=== PATIENT | female | born 1990 | race American Indian/Alaskan Native ===

== ENCOUNTER 2021-01-23 09:05 | Outpatient (CLI) | payer BC ==
[2021-01-23 09:40] VITALS: BP 109/74
--- NOTE | 2021-01-23 14:47 | Ultrasound Report ---
ULTRASOUND OBSTETRIC COMPLETE INDICATION / CLINICAL INFORMATION: bpp stan. Clinical Gestational Age (GA) in weeks, days: 38 weeks 2 days TECHNIQUE: Transabdominal. COMPARISON: None available. FINDINGS: NUMBER: Single PRESENTATION: cephalic PLACENTA: anterior and free of the os. MATERNAL ADNEXA: No significant abnormality. AMNIOTIC FLUID VOLUME: normal AMNIOTIC FLUID INDEX (STAN) in cm (if measured): 8.4 ANATOMY: organs (including the bladder, stomach, kidneys, heart, umbilical cord, diaphragm, cord inserti on, spine and intracranial structures) are visualized and show no significant abnormality with the fo llowing exception(s): None. MEASUREMENTS: - Biparietal Diameter = 9.2 cm = 37 weeks 1 day - Head Circumference = 34.0 cm = 39 weeks 0 days - Abdominal Circumference = 31.3 cm = 35 weeks 1 day - Femur Length = 7.2 cm = 36 weeks 5 days - Estimated Weight (in grams, if calculated): 2879 - Heart Rate (beats per minute): 130 AVERAGE ULTRASOUND AGE (AUA) in weeks, days = 37 weeks 0 days BIOPHYSICAL PROFILE: BREATHING MOVEMENT = 2 GROSS BODY MOVEMENT = 2 TONE = 2 QUALITATIVE AMNIOTIC FLUID VOLUME = 2 TOTAL BIOPHYSICAL SCORE = 8/8 IMPRESSION: 1. Single intrauterine with AUA of 37 weeks 0 days. Total BPP of 8/8. 2. No significant sonographic abnormality. 3. STAN measures 8.4 cm, within normal limits. Signer Name: Amaury Agee MD Signed: 01/23/2021 2:42 PM Workstation Name: [id number]
== END 2021-01-23 12:34 | disposition home or self-care (01) ==
LOC: TRG 09:05 → APU 09:08 → TRG 12:34
PROVIDERS: ATTEND Obstetrics & Gynecology
DX: O47.1 False labor at or after 37 completed weeks of gestation (principal); Z3A.38 38 weeks gestation of pregnancy
CPT/HCPCS: 59025; 76816; 76819

== ENCOUNTER 2021-01-25 15:38 | Inpatient (IN) | payer BC ==
[2021-01-25] MEDS ORDERED: CARBOPROST TROMETHAMINE 250 MCG/1 ML INJ IM PRN (16:38)
[2021-01-25] MEDS ORDERED: miSOPROStol 200 MCG TAB PR PRN (16:38)
[2021-01-25] MEDS ORDERED: ONDANSETRON 4 MG/2 ML INJ IV PRN (16:38)
[2021-01-25] MEDS ORDERED: ePHEDrine SULFATE 50 MG/1 ML INJ IV PRN ×2 (16:38→18:38)
[2021-01-25] MEDS ORDERED: BUTORPHANOL 2 MG/1 ML INJ IV PRN ×2 (16:38)
[2021-01-25] MEDS ORDERED: LOPERAMIDE 2 MG CAP PO PRN (16:38)
[2021-01-25] MEDS ORDERED: METHYLERGONOVINE MALEATE 0.2 MG/ML VIAL IM PRN (16:38)
[2021-01-25] MEDS ORDERED: TERBUTALINE 1 MG/1 ML INJ SUB-Q PRN (16:38)
[2021-01-25] MEDS ORDERED: ACETAMINOPHEN 325 MG TAB PO PRN (16:38)
[2021-01-25] MEDS ORDERED: OXYTOCIN 10 UNIT/1 ML INJ IM PRN (16:38)
[2021-01-25] MEDS ORDERED: fentaNYL 100 MCG/2 ML INJ IV PRN (16:38)
[2021-01-25] MEDS ORDERED: MINERAL OIL 30 ML ORAL LIQD PO PRN (16:38)
[2021-01-25] MEDS ORDERED: OXYTOCIN DRIP 30 UNITS/500 ML BAG IV SCH ×2 (17:00)
[2021-01-25] MEDS ORDERED: AMPICILLIN/NS 2 GM/100 ML 2 GM/100 ML BAG IV ONE (17:00)
[2021-01-25] MEDS ORDERED: LIDOCAINE (2%) 20 MG/1 ML VIAL 20 ML MDV INFILTRATI ONE (17:00)
[2021-01-25] MEDS: LACTATED RINGERS 1,000 ML IV SCH ×2 (17:29→20:24)
[2021-01-25 17:38] LABS: Hematocrit 36.9 % (30.3-42.9); Hemoglobin 12.4 gm/dl (10.1-14.3); Mean Corpuscular HGB Conc 34 % (30-34); Mean Corpuscular Volume 81 fl (79-97); Platelet Count 200 K/mm3 (140-440); Red Blood Count 4.54 M/mm3 (3.65-5.03); Red Cell Distribution Width 15.6 % (13.2-15.2)
[2021-01-25] MEDS ORDERED: NALOXONE 2 MG/2 ML INJ IV PRN (18:38)
--- NOTE | 2021-01-25 18:39 | Anesthesia Consultation ---
Anesthesia Consult and Med Hx Date of service: 01/25/21 - Airway Anesthetic Teeth Evaluation: Good ROM Head & Neck: Adequate Mental/Hyoid Distance: Adequate Mallampati Class: Class II Intubation Access Assessment: Probably Good - Pulmonary Exam CTA: Yes - Cardiac Exam Cardiac Exam: RRR - Pre-Operative Health Status ASA Pre-Surgery Classification: ASA2 Proposed Anesthetic Plan: Epidural - Pulmonary Hx Asthma: Yes (LAST USE INHALER 3 DAYS AGO) COPD: No Hx Pneumonia: No - Cardiovascular System Hx Hypertension: No - Central Nervous System Hx Seizures: No Hx Psychiatric Problems: No - Endocrine Hx Renal Disease: No Hx End Stage Renal Disease: No Hx Hypothyroidism: No Hx Hyperthyroidism: No - Hematic Hx Anemia: No Hx Sickle Cell Disease: No - Other Systems Hx Alcohol Use: No
--- NOTE | 2021-01-25 18:41 | History and Physical Report ---
History of Present Illness Date of examination: 01/25/21 (pt admitted in labor) Chief complaint: worsening ctx all day History of present illness: EDC Confirmation: 02/04/2021 Gestational Age: 38 weeks Past History : 1 Term Births: 0 Premature Births: 0 Living Children: 0 Para: 0 Mult. Births: 0 Prev : 0 Aborta: 0 Elect. Ab: 0 Spont. Ab: 0 Ectopics: 0 Past Medical History: Reviewed history and no changes required: Allergies-seasonal Asthma: Inhaler daily ProAir, Wixela, No intubations Past Surgical History: Reviewed history and no changes required: negative Past Medical History Anesthesia Complications: negative Anemia: negative Autoimmune Disorder: negative Bleeding Disorder: negative Blood Transfusions: negative Breast Disease: negative Diabetes: negative Heart Disease: negative Hypertension: negative Hepatitis/Liver Disease: negative Kidney Disease/UTI: negative Neurologic/Epilepsy/Migraines: negative Phlebitis/Varicosities: negative Psychiatric: negative Pulmonary Disease/Asthma: negative Thyroid Disease: negative Hospitalizations: negative Surgery (Non-log cooker): negative Abnormal PAP: positive, F/u normal: 2018 TIFFANY Exposure: negative Infertility: negative Uterine Anomaly: negative Uterine Surgery (not C/S): negative Other Gynecologic Problems: negative Family Hx: CA: Mother, PGM HTN: Mother Infection History Hx of STD: none HIV Risk Eval: no Hepatitis B Risk Eval: low risk Personal hx. of genital herpes: no Partner hx. of genital herpes: no Rash, Viral, or Febrile illness since last LMP? no Varicella/Chicken Pox Status: Immunized TB Risk: no Genetic History Congenital Heart Defect: Mom: no Dad: no Latrice Disease: Mom: no Dad: no Thalassemia Mom: no Dad: no Neural Tube Defect Mom: no Dad: no Down's Syndrome Mom: no Dad: no Rich-Sachs Mom: no Dad: no Sickle Cell Disease/Trait Mom: no Dad: no Hemophilia Mom: no Dad: no Muscular Dystrophy Mom: no Dad: no Cystic Fibrosis Mom: no Dad: no Roz Chorea Mom: no Dad: no Mental Retardation Mom: no Dad: no Fragile X Mom: no Dad: no Other Genetic/Chromosomal Disorder Mom: no Dad: no Child w/other defect Mom: no Dad: no Enviromental Exposures Enviromental Exposures Reviewed Xray Exposure: no Medication, drug, or alcohol use since LMP: no Chemical/Other Exposure: no Exposure to Cat Liter: no Hx of Parvovirus (Fifth Disease): no Occupational Exposure to Children: none Current Allergies (reviewed today): * DUST (Critical) * POLLEN (Critical) Past History - Obstetrical History Expected Date of Delivery: 02/04/21 Actual Gestation: 38 Week(s) 4 Day(s) : 1 Para: 0 Hx # Term Pregnancies: 0 Number of Pregnancies: 0 Spontaneous Abortions: 0 Induced : 0 Number of Living Children: 0 Medications and Allergies Allergies Allergy/AdvReac Type Severity Reaction Status Date / Time No Known Allergies Allergy Unverified 01/23/21 10:09 Active Meds: Active Medications Acetaminophen (Acetaminophen 325 Mg Tab) 650 mg PO Q4H PRN PRN Reason: Pain, Mild (1-3) Butorphanol Tartrate (Butorphanol 2 Mg/1 Ml Inj) 1 mg IV Q2H PRN PRN Reason: Pain, Moderate(4-6) LABOR PAIN Butorphanol Tartrate (Butorphanol 2 Mg/1 Ml Inj) 2 mg IV Q2H PRN PRN Reason: Pain , Severe (7-10) Last Admin: 01/25/21 17:53 Dose: 2 mg Documented by: Carboprost Tromethamine (Carboprost Tromethamine 250 Mcg/1 Ml Inj) 250 mcg IM ONCE PRN PRN Reason: Uterine Bleeding Ephedrine Sulfate (Ephedrine Sulfate 50 Mg/1 Ml Inj) 10 mg IV Q2M PRN PRN Reason: Hypotension Ephedrine Sulfate (Ephedrine Sulfate 50 Mg/1 Ml Inj) 10 mg IV Q2M PRN PRN Reason: Hypotension Fentanyl (Fentanyl 100 Mcg/2 Ml Inj) 100 mcg IV Q2H PRN PRN Reason: Pain,Severe (7-10) LABOR PAIN Oxytocin/Sodium Chloride (Pitocin/Ns 30 Unit/500ml) 30 units in 500 mls @ 2 mls/hr IV TITR CAROLE; Protocol Lactated Ringer's (Lactated Ringers) 1,000 mls @ 125 mls/hr IV DIRECT CAROLE Last Admin: 01/25/21 17:29 Dose: 125 mls/hr Documented by: Oxytocin/Sodium Chloride (Pitocin/Ns 30 Unit/500ml) 30 units in 500 mls @ 40 ml s/hr IV TITR CAROLE; Protocol Fentanyl/Bupivacaine/Sodium Chlor (Fentanyl-Bupiv 2 Mcg/Ml-0.125%) 200 mcg in 100 mls @ 12 mls/hr EPIDURAL TITR CAROLE; Protocol Loperamide HCl (Loperamide 2 Mg Cap) 2 mg PO ONCE PRN PRN Reason: give with Hemabate Methylergonovine Maleate (Methylergonovine Maleate 0.2 Mg/Ml Vial) 0.2 mg IM ONCE PRN PRN Reason: Uterine Bleeding Mineral Oil (Mineral Oil 30 Ml Oral Liqd) 30 ml PO QHS PRN PRN Reason: Constipation Misoprostol (Misoprostol 200 Mcg Tab) 800 mcg MT ONCE PRN PRN Reason: Uterine Bleeding Naloxone HCl (Naloxone 2 Mg/2 Ml Inj) 0.2 mg IV Q5M PRN PRN Reason: Respiratory sedation Ondansetron HCl (Ondansetron 4 Mg/2 Ml Inj) 4 mg IV Q8H PRN PRN Reason: Nausea And Vomiting Last Admin: 01/25/21 17:53 Dose: 4 mg Documented by: Oxytocin (Oxytocin 10 Unit/1 Ml Inj) 10 unit IM ONCE PRN PRN Reason: Uterine Bleeding Terbutaline Sulfate (Terbutaline 1 Mg/1 Ml Inj) 0.25 mg SUB-Q ONCE PRN PRN Reason: Hyperstimulation/Hypertonicity Review of Systems All systems: negative - Vital Signs Vital signs: Vital Signs Pulse BP 76 129/69 01/25/21 15:58 01/25/21 15:58 Temp Pulse Resp BP Pulse Ox 98.4 F 73 18 119/71 98 01/25/21 16:07 01/25/21 18:36 01/25/21 16:07 01/25/21 17:58 01/25/21 18:36 - Physical Exam Breasts: Positive: deferred Cardiovascular: Regular rate, Normal S1, Normal S2 Abdomen: Positive: normal appearance, soft, normal bowel sounds. Negative: distention, tenderness Vulva: both: normal Vagina: Positive: normal moisture. Negative: discharge Cervix: Negative: lesion, discharge Uterus: Positive: normal size, normal contour Adnexa: both: normal Anus/Rectum: Positive: normal perianal skin, heme negative. Negative: rectal mass, hemorrhoids Extremities: Deep Tendon Reflex Grade: Normal +2 Results Result Diagrams: 01/25/21 17:05 Abnormal lab results 01/25/21 Range/Units 17:05 MCH 27 L (28-32) pg RDW 15.6 H (13.2-15.2) % All other labs normal. GBS Positive HBsAg Screen Negative Negative *1 RPR Non Reactive Non Reactive *2 Rubella Antibodies, IgG 3.18 index Immune >0.99 *3 Non-immune <0.90 Equivocal 0.90 - 0.99 Immune >0.99 ABO Grouping AB *4 Rh Factor Positive *5 Please note: Prior records for this patient's ABO / Rh type are not available for additional verification. Antibody Screen Negative Negative *6 WBC 4.9 x10E3/uL 3.4-10.8 *7 RBC 4.76 x10E6/uL 3.77-5.28 *8 Hemoglobin 12.3 g/dL 11.1-15.9 *9 Hematocrit 40.0 % 34.0-46.6 *10 MCV 84 fL 79-97 *11 MCH [L] 25.8 pg 26.6-33.0 *12 MCHC [L] 30.8 g/dL 31.5-35.7 *13 RDW 13.1 % 11.7-15.4 *14 Platelets 283 x10E3/uL 150-450 *15 Neutrophils 58 % Not Estab. *16 Lymphs 31 % Not Estab. *17 Monocytes 7 % Not Estab. *18 Eos 3 % Not Estab. *19 Basos 1 % Not Estab. *20 ! Immature Cells <No Reported Value> *21 Neutrophils (Absolute) 2.8 x10E3/uL 1.4-7.0 *22 Lymphs (Absolute) 1.5 x10E3/uL 0.7-3.1 *23 Monocytes(Absolute) 0.4 x10E3/uL 0.1-0.9 *24 Eos (Absolute) 0.1 x10E3/uL 0.0-0.4 *25 Baso (Absolute) 0.0 x10E3/uL 0.0-0.2 *26 ! Immature Granulocytes 0 % Not Estab. *27 ! Immature Grans (Abs) 0.0 x10E3/uL 0.0-0.1 *28 ! NRBC <No Reported Value> *29 Hematology Comments: <No Reported Value> *30 Tests: (2) HIV Ag/Ab with Reflex ([id number]) HIV Screen 4th Generation wRfx Non Reactive Non Reactive *31 Tests: (3) HCV Ab w/Rflx to Verification ([id number]) ! HCV Ab <0.1 s/co ratio 0.0-0.9 *32 Tests: (4) Comment: ([id number]) ! Comment: [facility] *33 Non reactive HCV antibody screen is consistent with no HCV infection, unless recent infection is suspected or other evidence exists to indicate HCV infection. Tests: (5) Urine Culture, Routine ([id number]) Urine Culture, Routine Final report *34 Tests: (6) Result ([id number]) ! Result 1 No growth *35 Assessment and Plan 30yo @ 38w in active labor GBS+ All orders in EMR Dr Garza aware - Patient Problems (1) Group B Streptococcus carrier state affecting Onset Date: ~01/25/21 Current Visit: Yes Status: Acute Plan to address problem: Ampicillin per protocol
[2021-01-25] MEDS ORDERED: LACTATED RINGERS 1,000 ML IV SCH (18:45)
[2021-01-25] MEDS ORDERED: fentaNYL-BUPIV 2 MCG/ML-0.125% 200 MCG/100 ML BAG EPIDURAL SCH (19:00)
--- NOTE | 2021-01-25 19:54 | Progress Note ---
Labor Epidural - Labor Epidural Start Time: 19:38 Stop Time: 19:43 Performed by:: SIMÓN GILLESPIE Procedure: Patient is requesting epidural for labor pain. H&P, and labs reviewed. Procedure explained, questions answered, consent obtained. Patient in sitting position with blood pressure cuff and pulse ox on and working. Timeout performed immediately before start of procedure. Sterile chlorahexadine 0.5% prep/drape. 3 mL 1% lidocaine skin wheal at L[3]-L[4]. 18-gauge Smartzertead epidural needle advanced to [id number] with saline at [7] cm. 27-gauge spinal needle advanced until clear, free-flowing CSF. Intrathecal dexmedetomidine [5] mcg administered and needle removed. Epidural catheter advanced to [12] cm, negative aspiration for blood and csf, negative test dose 3 ml 1.5% lidocaine with epinephrine. Sterile steri-strips and tegaderm applied, followed by tape reinforcement. Patient tolerated procedure well.
--- NOTE | 2021-01-25 20:43 | Progress Note ---
Assessment and Plan Mild hypotension after epidural Variable decels noted SROM clear fluid Internals placed. Ctx irregular pattern Will start pitocin Re-eval as needed - Patient Problems (1) Group B Streptococcus carrier state affecting Onset Date: ~01/25/21 Current Visit: Yes Status: Acute Subjective - Subjective Date of service: 01/25/21 (comfortable with epidural) Principal diagnosis: 38w labor GBS+ Interval history: EDC Confirmation: 02/04/2021 Gestational Age: 38 weeks Past History : 1 Term Births: 0 Premature Births: 0 Living Children: 0 Para: 0 Mult. Births: 0 Prev : 0 Aborta: 0 Elect. Ab: 0 Spont. Ab: 0 Ectopics: 0 Past Medical History: Reviewed history and no changes required: Allergies-seasonal Asthma: Inhaler daily ProAir, Wixela, No intubations Past Surgical History: Reviewed history and no changes required: negative Past Medical History Anesthesia Complications: negative Anemia: negative Autoimmune Disorder: negative Bleeding Disorder: negative Blood Transfusions: negative Breast Disease: negative Diabetes: negative Heart Disease: negative Hypertension: negative Hepatitis/Liver Disease: negative Kidney Disease/UTI: negative Neurologic/Epilepsy/Migraines: negative Phlebitis/Varicosities: negative Psychiatric: negative Pulmonary Disease/Asthma: negative Thyroid Disease: negative Hospitalizations: negative Surgery (Non-photographer scientific): negative Abnormal PAP: positive, F/u normal: 2018 TIFF[place] Exposure: negative Infertility: negative Uterine Anomaly: negative Uterine Surgery (not C/S): negative Other Gynecologic Problems: negative Family Hx: CA: Mother, PGM HTN: Mother Infection History Hx of STD: none HIV Risk Eval: no Hepatitis B Risk Eval: low risk Personal hx. of genital herpes: no Partner hx. of genital herpes: no Rash, Viral, or Febrile illness since last LMP? no Varicella/Chicken Pox Status: Immunized TB Risk: no Genetic History Congenital Heart Defect: Mom: no Dad: no Latrice Disease: Mom: no Dad: no Thalassemia Mom: no Dad: no Neural Tube Defect Mom: no Dad: no Down's Syndrome Mom: no Dad: no Rich-Sachs Mom: no Dad: no Sickle Cell Disease/Trait Mom: no Dad: no Hemophilia Mom: no Dad: no Muscular Dystrophy Mom: no Dad: no Cystic Fibrosis Mom: no Dad: no Meriwether Chorea Mom: no Dad: no Mental Retardation Mom: no Dad: no Fragile X Mom: no Dad: no Other Genetic/Chromosomal Disorder Mom: no Dad: no Child w/other defect Mom: no Dad: no Enviromental Exposures Enviromental Exposures Reviewed Xray Exposure: no Medication, drug, or alcohol use since LMP: no Chemical/Other Exposure: no Exposure to Cat Liter: no Hx of Parvovirus (Fifth Disease): no Occupational Exposure to Children: none Current Allergies (reviewed today): * DUST (Critical) * POLLEN (Critical) Patient reports: movement normal Objective - Vital Signs Vital Signs: Vital Signs - 12hr 01/25/21 01/25/21 01/25/21 15:58 15:59 16:04 Temperature Pulse Rate 76 71 77 Respiratory Rate Blood Pressure 129/69 Blood Pressure [Right] O2 Sat by Pulse 99 100 Oximetry 01/25/21 01/25/21 01/25/21 16:07 16:09 16:14 Temperature 98.4 F Pulse Rate 75 78 Respiratory 18 Rate Blood Pressure Blood Pressure [Right] O2 Sat by Pulse 99 99 Oximetry 01/25/21 01/25/21 01/25/21 16:19 16:24 16:29 Temperature Pulse Rate 79 72 68 Respiratory Rate Blood Pressure Blood Pressure [Right] O2 Sat by Pulse 100 99 99 Oximetry 01/25/21 01/25/21 01/25/21 16:34 16:39 16:44 Temperature Pulse Rate 74 77 76 Respiratory Rate Blood Pressure Blood Pressure [Right] O2 Sat by Pulse 100 100 100 Oximetry 01/25/21 01/25/21 01/25/21 16:49 16:54 16:56 Temperature Pulse Rate 70 70 63 Respiratory Rate Blood Pressure Blood Pressure [Right] O2 Sat by Pulse 100 99 90 Oximetry 01/25/21 01/25/21 01/25/21 16:59 17:04 17:09 Temperature Pulse Rate 77 71 74 Respiratory Rate Blood Pressure Blood Pressure [Right] O2 Sat by Pulse 99 100 100 Oximetry 01/25/21 01/25/21 01/25/21 17:14 17:35 17:36 Temperature Pulse Rate 66 63 72 Respiratory Rate Blood Pressure 125/74 Blood Pressure [Right] O2 Sat by Pulse 99 100 Oximetry 01/25/21 01/25/21 01/25/21 17:41 17:46 17:51 Temperature Pulse Rate 66 68 74 Respiratory Rate Blood Pressure Blood Pressure [Right] O2 Sat by Pulse 96 100 99 Oximetry 01/25/21 01/25/21 01/25/21 17:56 17:58 18:01 Temperature Pulse Rate 78 72 81 Respiratory Rate Blood Pressure 119/71 Blood Pressure [Right] O2 Sat by Pulse 99 99 Oximetry 01/25/21 01/25/21 01/25/21 18:06 18:11 18:16 Temperature Pulse Rate 69 71 65 Respiratory Rate Blood Pressure Blood Pressure [Right] O2 Sat by Pulse 99 98 98 Oximetry 01/25/21 01/25/21 01/25/21 18:21 18:26 18:31 Temperature Pulse Rate 65 66 68 Respiratory Rate Blood Pressure Blood Pressure [Right] O2 Sat by Pulse 98 98 97 Oximetry 01/25/21 01/25/21 01/25/21 18:36 18:41 18:42 Temperature Pulse Rate 73 65 59 L Respiratory Rate Blood Pressure Blood Pressure [Right] O2 Sat by Pulse 98 98 94 Oximetry 01/25/21 01/25/21 01/25/21 18:46 18:51 18:56 Temperature Pulse Rate 61 61 63 Respiratory Rate Blood Pressure Blood Pressure [Right] O2 Sat by Pulse 100 100 100 Oximetry 01/25/21 01/25/21 01/25/21 19:06 19:07 19:11 Temperature Pulse Rate 83 71 76 Respiratory Rate Blood Pressure 127/71 Blood Pressure [Right] O2 Sat by Pulse 95 98 Oximetry 01/25/21 01/25/21 01/25/21 19:16 19:19 19:21 Temperature 98.3 F Pulse Rate 69 71 73 Respiratory 16 Rate Blood Pressure Blood Pressure 127/71 [Right] O2 Sat by Pulse 100 98 99 Oximetry 01/25/21 01/25/21 01/25/21 19:29 19:34 19:39 Temperature Pulse Rate 85 78 69 Respiratory Rate Blood Pressure Blood Pressure [Right] O2 Sat by Pulse 100 99 99 Oximetry 01/25/21 01/25/21 01/25/21 19:44 19:45 19:47 Temperature Pulse Rate 76 71 76 Respiratory Rate Blood Pressure 122/73 135/78 144/72 Blood Pressure [Right] O2 Sat by Pulse 100 Oximetry 01/25/21 01/25/21 01/25/21 19:49 19:51 19:53 Temperature Pulse Rate 62 67 68 Respiratory Rate Blood Pressure 122/65 116/62 117/55 Blood Pressure [Right] O2 Sat by Pulse 99 Oximetry 01/25/21 01/25/21 01/25/21 19:54 19:55 19:57 Temperature Pulse Rate 72 62 76 Respiratory Rate Blood Pressure 112/55 113/54 Blood Pressure [Right] O2 Sat by Pulse 100 Oximetry 01/25/21 01/25/21 01/25/21 19:59 20:01 20:03 Temperature Pulse Rate 68 73 74 Respiratory Rate Blood Pressure 106/55 104/55 107/57 Blood Pressure [Right] O2 Sat by Pulse 100 Oximetry 01/25/21 01/25/21 01/25/21 20:04 20:05 20:07 Temperature Pulse Rate 73 80 78 Respiratory Rate Blood Pressure 123/59 118/57 Blood Pressure [Right] O2 Sat by Pulse 100 Oximetry 01/25/21 01/25/21 01/25/21 20:09 20:11 20:13 Temperature Pulse Rate 80 74 72 Respiratory Rate Blood Pressure 117/58 112/56 109/59 Blood Pressure [Right] O2 Sat by Pulse 98 Oximetry 01/25/21 01/25/21 01/25/21 20:14 20:15 20:17 Temperature Pulse Rate 77 76 75 Respiratory Rate Blood Pressure 104/57 101/56 Blood Pressure [Right] O2 Sat by Pulse 98 Oximetry 01/25/21 01/25/21 01/25/21 20:19 20:24 20:25 Temperature Pulse Rate 79 71 69 Respiratory Rate Blood Pressure 100/57 Blood Pressure [Right] O2 Sat by Pulse 99 100 Oximetry 01/25/21 01/25/21 01/25/21 20:29 20:32 20:34 Temperature Pulse Rate 73 70 74 Respiratory Rate Blood Pressure 103/59 Blood Pressure [Right] O2 Sat by Pulse 100 100 Oximetry 01/25/21 01/25/21 20:35 20:37 Temperature Pulse Rate 68 94 H Respiratory Rate Blood Pressure 108/68 Blood Pressure [Right] O2 Sat by Pulse 93 Oximetry - Exam Breasts: deferred Cardiovascular: Regular rate Lungs: Clear to auscultation Abdomen: Present: normal appearance, soft. Absent: distention, tenderness Uterus: Present: normal FHR: auscultation normal, category 1 (minimal variablity occ acceleration) Uterine Contraction Monitor Mode: Internal Cervical Dilatation: 6 (SROM clear) Cervical Effacement Percentage: 80 (Internals placed) Uterine Contraction Frequency (min): -2 Uterine Contraction Pattern: Regular Uterine Tone Measurement Phase: Resting Uterine Contraction Intensity: Moderate Extremities: normal Deep Tendon Reflex Grade: Normal +2 - Labs Labs: Abnormal Labs 01/25/21 17:05 MCH 27 L RDW 15.6 H Laboratory Results - last 24 hr 01/25/21 01/25/21 01/25/21 17:05 17:05 17:05 WBC 7.8 RBC 4.54 Hgb 12.4 Hct 36.9 MCV 81 MCH 27 L MCHC 34 RDW 15.6 H Plt Count 200 Syphilis IgG Antibody Nonreactive Blood Type AB POSITIVE Antibody Screen Negative
[2021-01-25] MEDS ORDERED: METOCLOPRAMIDE 10 MG/2 ML INJ IV ONE (22:27)
[2021-01-25] MEDS ORDERED: FAMOTIDINE 20 MG/2 ML INJ IV ONE (22:27)
[2021-01-25] MEDS ORDERED: BICITRA ORAL LIQD 30ML PO ONE (22:27)
--- NOTE | 2021-01-25 22:37 | Progress Note ---
Assessment and Plan Deep variable decel noted Mutiple position chges Pitocin off SVE 6.5,90,-2 OP Decel X 4 min then followed by [address] Garza called Enroute Pt advised need for operative delivery. Risks: bleeding, need for transfusion, damage to surrounding organs, need for c/s with future pregnancies. All questions addressed. Pt agrees to proceed. - Patient Problems (1) Group B Streptococcus carrier state affecting Onset Date: ~01/25/21 Current Visit: Yes Status: Acute Subjective - Subjective Date of service: 01/25/21 (prolong bradycardia) Principal diagnosis: 38w labor GBS+ Interval history: EDC Confirmation: 02/04/2021 Gestational Age: 38 weeks Past History : 1 Term Births: 0 Premature Births: 0 Living Children: 0 Para: 0 Mult. Births: 0 Prev : 0 Aborta: 0 Elect. Ab: 0 Spont. Ab: 0 Ectopics: 0 Past Medical History: Reviewed history and no changes required: Allergies-seasonal Asthma: Inhaler daily ProAir, Wixela, No intubations Past Surgical History: Reviewed history and no changes required: negative Past Medical History Anesthesia Complications: negative Anemia: negative Autoimmune Disorder: negative Bleeding Disorder: negative Blood Transfusions: negative Breast Disease: negative Diabetes: negative Heart Disease: negative Hypertension: negative Hepatitis/Liver Disease: negative Kidney Disease/UTI: negative Neurologic/Epilepsy/Migraines: negative Phlebitis/Varicosities: negative Psychiatric: negative Pulmonary Disease/Asthma: negative Thyroid Disease: negative Hospitalizations: negative 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 of genital herpes: no Partner hx. of genital herpes: no Rash, Viral, or Febrile illness since last LMP? no Varicella/Chicken Pox Status: Immunized TB Risk: no Genetic History Congenital Heart Defect: Mom: no Dad: no Latrice Disease: Mom: no Dad: no Thalassemia Mom: no Dad: no Neural Tube Defect Mom: no Dad: no Down's Syndrome Mom: no Dad: no Rich-Sachs Mom: no Dad: no Sickle Cell Disease/Trait Mom: no Dad: no Hemophilia Mom: no Dad: no Muscular Dystrophy Mom: no Dad: no Cystic Fibrosis Mom: no Dad: no [place] Chorea Mom: no Dad: no Mental Retardation Mom: no Dad: no Fragile X Mom: no Dad: no Other Genetic/Chromosomal Disorder Mom: no Dad: no Child w/other defect Mom: no Dad: no Enviromental Exposures Enviromental Exposures Reviewed Xray Exposure: no Medication, drug, or alcohol use since LMP: no Chemical/Other Exposure: no Exposure to Cat Liter: no Hx of Parvovirus (Fifth Disease): no Occupational Exposure to Children: none Current Allergies (reviewed today): * DUST (Critical) * POLLEN (Critical) Patient reports: movement normal Objective - Vital Signs Vital Signs: Vital Signs - 12hr 01/25/21 01/25/21 01/25/21 15:58 15:59 16:04 Temperature Pulse Rate 76 71 77 Respiratory Rate Blood Pressure 129/69 Blood Pressure [Right] O2 Sat by Pulse 99 100 Oximetry 01/25/21 01/25/21 01/25/21 16:07 16:09 16:14 Temperature 98.4 F Pulse Rate 75 78 Respiratory 18 Rate Blood Pressure Blood Pressure [Right] O2 Sat by Pulse 99 99 Oximetry 01/25/21 01/25/21 01/25/21 16:19 16:24 16:29 Temperature Pulse Rate 79 72 68 Respiratory Rate Blood Pressure Blood Pressure [Right] O2 Sat by Pulse 100 99 99 Oximetry 01/25/21 01/25/21 01/25/21 16:34 16:39 16:44 Temperature Pulse Rate 74 77 76 Respiratory Rate Blood Pressure Blood Pressure [Right] O2 Sat by Pulse 100 100 100 Oximetry 01/25/21 01/25/21 01/25/21 16:49 16:54 16:56 Temperature Pulse Rate 70 70 63 Respiratory Rate Blood Pressure Blood Pressure [Right] O2 Sat by Pulse 100 99 90 Oximetry 01/25/21 01/25/21 01/25/21 16:59 17:04 17:09 Temperature Pulse Rate 77 71 74 Respiratory Rate Blood Pressure Blood Pressure [Right] O2 Sat by Pulse 99 100 100 Oximetry 01/25/21 01/25/21 01/25/21 17:14 17:35 17:36 Temperature Pulse Rate 66 63 72 Respiratory Rate Blood Pressure 125/74 Blood Pressure [Right] O2 Sat by Pulse 99 100 Oximetry 01/25/21 01/25/21 01/25/21 17:41 17:46 17:51 Temperature Pulse Rate 66 68 74 Respiratory Rate Blood Pressure Blood Pressure [Right] O2 Sat by Pulse 96 100 99 Oximetry 01/25/21 01/25/21 01/25/21 17:56 17:58 18:01 Temperature Pulse Rate 78 72 81 Respiratory Rate Blood Pressure 119/71 Blood Pressure [Right] O2 Sat by Pulse 99 99 Oximetry 01/25/21 01/25/21 01/25/21 18:06 18:11 18:16 Temperature Pulse Rate 69 71 65 Respiratory Rate Blood Pressure Blood Pressure [Right] O2 Sat by Pulse 99 98 98 Oximetry 01/25/21 01/25/21 01/25/21 18:21 18:26 18:31 Temperature Pulse Rate 65 66 68 Respiratory Rate Blood Pressure Blood Pressure [Right] O2 Sat by Pulse 98 98 97 Oximetry 01/25/21 01/25/21 01/25/21 18:36 18:41 18:42 Temperature Pulse Rate 73 65 59 L Respiratory Rate Blood Pressure Blood Pressure [Right] O2 Sat by Pulse 98 98 94 Oximetry 01/25/21 01/25/21 01/25/21 18:46 18:51 18:56 Temperature Pulse Rate 61 61 63 Respiratory Rate Blood Pressure Blood Pressure [Right] O2 Sat by Pulse 100 100 100 Oximetry 01/25/21 01/25/21 01/25/21 19:06 19:07 19:11 Temperature Pulse Rate 83 71 76 Respiratory Rate Blood Pressure 127/71 Blood Pressure [Right] O2 Sat by Pulse 95 98 Oximetry 01/25/21 01/25/21 01/25/21 19:16 19:19 19:21 Temperature 98.3 F Pulse Rate 69 71 73 Respiratory 16 Rate Blood Pressure Blood Pressure 127/71 [Right] O2 Sat by Pulse 100 98 99 Oximetry 01/25/21 01/25/21 01/25/21 19:29 19:34 19:39 Temperature Pulse Rate 85 78 69 Respiratory Rate Blood Pressure Blood Pressure [Right] O2 Sat by Pulse 100 99 99 Oximetry 01/25/21 01/25/21 01/25/21 19:44 19:45 19:47 Temperature Pulse Rate 76 71 76 Respiratory Rate Blood Pressure 122/73 135/78 144/72 Blood Pressure [Right] O2 Sat by Pulse 100 Oximetry 01/25/21 01/25/21 01/25/21 19:49 19:51 19:53 Temperature Pulse Rate 62 67 68 Respiratory Rate Blood Pressure 122/65 116/62 117/55 Blood Pressure [Right] O2 Sat by Pulse 99 Oximetry 01/25/21 01/25/21 01/25/21 19:54 19:55 19:57 Temperature Pulse Rate 72 62 76 Respiratory Rate Blood Pressure 112/55 113/54 Blood Pressure [Right] O2 Sat by Pulse 100 Oximetry 01/25/21 01/25/21 01/25/21 19:59 20:01 20:03 Temperature Pulse Rate 68 73 74 Respiratory Rate Blood Pressure 106/55 104/55 107/57 Blood Pressure [Right] O2 Sat by Pulse 100 Oximetry 01/25/21 01/25/21 01/25/21 20:04 20:05 20:07 Temperature Pulse Rate 73 80 78 Respiratory Rate Blood Pressure 123/59 118/57 Blood Pressure [Right] O2 Sat by Pulse 100 Oximetry 01/25/21 01/25/21 01/25/21 20:09 20:11 20:13 Temperature Pulse Rate 80 74 72 Respiratory Rate Blood Pressure 117/58 112/56 109/59 Blood Pressure [Right] O2 Sat by Pulse 98 Oximetry 01/25/21 01/25/21 01/25/21 20:14 20:15 20:17 Temperature Pulse Rate 77 76 75 Respiratory Rate Blood Pressure 104/57 101/56 Blood Pressure [Right] O2 Sat by Pulse 98 Oximetry 01/25/21 01/25/21 01/25/21 20:19 20:24 20:25 Temperature Pulse Rate 79 71 69 Respiratory Rate Blood Pressure 100/57 Blood Pressure [Right] O2 Sat by Pulse 99 100 Oximetry 01/25/21 01/25/21 01/25/21 20:29 20:32 20:34 Temperature Pulse Rate 73 70 74 Respiratory Rate Blood Pressure 103/59 Blood Pressure [Right] O2 Sat by Pulse 100 100 Oximetry 01/25/21 01/25/21 01/25/21 20:35 20:37 20:39 Temperature Pulse Rate 68 94 H 73 Respiratory Rate Blood Pressure 108/68 Blood Pressure [Right] O2 Sat by Pulse 93 97 Oximetry 01/25/21 01/25/21 01/25/21 20:43 20:44 20:49 Temperature Pulse Rate 65 56 L 71 Respiratory Rate Blood Pressure 118/66 116/73 Blood Pressure [Right] O2 Sat by Pulse 94 96 100 Oximetry 01/25/21 01/25/21 01/25/21 20:54 20:59 21:04 Temperature Pulse Rate 67 61 61 Respiratory Rate Blood Pressure Blood Pressure [Right] O2 Sat by Pulse 100 100 99 Oximetry 01/25/21 01/25/21 01/25/21 21:07 21:09 21:14 Temperature Pulse Rate 78 70 61 Respiratory Rate Blood Pressure Blood Pressure [Right] O2 Sat by Pulse 90 100 100 Oximetry 01/25/21 01/25/21 01/25/21 21:16 21:19 21:21 Temperature Pulse Rate 65 67 74 Respiratory Rate Blood Pressure 108/70 114/56 Blood Pressure [Right] O2 Sat by Pulse 100 82 L Oximetry 01/25/21 01/25/21 01/25/21 21:24 21:29 21:34 Temperature Pulse Rate 61 68 69 Respiratory Rate Blood Pressure Blood Pressure [Right] O2 Sat by Pulse 100 100 100 Oximetry 01/25/21 01/25/21 01/25/21 21:35 21:39 21:44 Temperature Pulse Rate 72 63 58 L Respiratory Rate Blood Pressure 110/58 Blood Pressure [Right] O2 Sat by Pulse 100 100 Oximetry 01/25/21 01/25/21 01/25/21 21:49 21:51 21:54 Temperature Pulse Rate 60 59 L 60 Respiratory Rate Blood Pressure 111/57 Blood Pressure [Right] O2 Sat by Pulse 100 100 Oximetry 01/25/21 01/25/21 01/25/21 21:59 22:04 22:07 Temperature Pulse Rate 57 L 58 L 59 L Respiratory Rate Blood Pressure 113/63 Blood Pressure [Right] O2 Sat by Pulse 100 100 Oximetry 01/25/21 01/25/21 01/25/21 22:09 22:14 22:15 Temperature Pulse Rate 60 68 74 Respiratory Rate Blood Pressure Blood Pressure [Right] O2 Sat by Pulse 100 100 80 L Oximetry 01/25/21 01/25/21 01/25/21 22:17 22:19 22:20 Temperature Pulse Rate 60 63 54 L Respiratory Rate Blood Pressure 144/67 132/61 Blood Pressure [Right] O2 Sat by Pulse 100 Oximetry 01/25/21 22:24 Temperature Pulse Rate 59 L Respiratory Rate Blood Pressure Blood Pressure [Right] O2 Sat by Pulse 100 Oximetry - Exam Breasts: deferred Cardiovascular: Regular rate Lungs: Normal air movement Abdomen: Present: normal appearance, soft. Absent: distention, tenderness Uterus: Present: normal FHR: auscultation normal, category 3 Uterine Contraction Monitor Mode: Internal Cervical Dilatation: 6.5 (pitocin off) Cervical Effacement Percentage: 90 station: -2 Uterine Contraction Pattern: Regular Uterine Tone Measurement Phase: Resting Uterine Contraction Intensity: Moderate Extremities: normal Deep Tendon Reflex Grade: Normal +2 - Labs Labs: Abnormal Labs 01/25/21 17:05 MCH 27 L RDW 15.6 H Laboratory Results - last 24 hr 01/25/21 01/25/21 01/25/21 17:05 17:05 17:05 WBC 7.8 RBC 4.54 Hgb 12.4 Hct 36.9 MCV 81 MCH 27 L MCHC 34 RDW 15.6 H Plt Count 200 Syphilis IgG Antibody Nonreactive Blood Type AB POSITIVE Antibody Screen Negative
[2021-01-25] MEDS ORDERED: ceFAZolin/STERILE WATER 2 GM/20 ML SYRINGE IV NR (23:00)
[2021-01-25] MEDS ORDERED: AMPICILLIN/NS 1 GM/50 ML 1 GM/50 ML BAG IV SCH (23:00)
--- NOTE | 2021-01-25 23:18 | Event Note ---
Date: 01/25/21 (consented and prepped) SVE 9,100,-1 Allowed a trial push Vertex moves well Now appears to be OA Dr Garza notified
[2021-01-25] MEDS ORDERED: ceFAZolin/STERILE WATER 2 GM/20 ML SYRINGE IV ONE (23:40)
[2021-01-25] MEDS ORDERED: SODIUM CHLORIDE 0.9% IRR 1,500 ML BOTTLE IR ONE (23:40)
[2021-01-25] MEDS ORDERED: LACTATED RINGERS 1000 ML IV SOLN IV ONE (23:40)
[2021-01-25] MEDS ORDERED: WATER FOR IRRIG STERILE 1,500 ML BOTTLE IR ONE (23:40)
[2021-01-25] MEDS ORDERED: dexAMETHasone 20 MG/5 ML VIAL ONE (23:45)
[2021-01-25] MEDS ORDERED: LIDOCAINE MPF (2%) 20 MG/1 ML VIAL 5 ML ONE (23:45)
[2021-01-25] MEDS ORDERED: BUPIVACAINE/PF (0.25%) 2.5 MG/ML 30 ML VIAL INFILTRATI ONE (23:45)
[2021-01-26] MEDS ORDERED: KETOROLAC 30 MG/1 ML INJ ONE (00:28)
[2021-01-26] MEDS ORDERED: HYDROCORTISONE 25 MG RECTAL SUPP PR PRN (00:28)
[2021-01-26] MEDS ORDERED: NALOXONE 0.4 MG/1 ML INJ IV PRN (00:28)
[2021-01-26] MEDS ORDERED: LANOLIN/ZINC/DIMETHICONE (LANSINOH) 7 GM TP PRN (00:28)
[2021-01-26] MEDS ORDERED: SENNOSIDES 8.6 MG TAB PO PRN (00:28)
[2021-01-26] MEDS ORDERED: WITCH HAZEL/ GLYCERIN PAD TP PRN (00:28)
[2021-01-26] MEDS ORDERED: OXYTOCIN DRIP 30 UNITS/500 ML BAG IV SCH (01:00)
[2021-01-26] MEDS: HYDROmorphone 1 MG/1 ML INJ IV PRN ×2 (03:44→10:40)
[2021-01-26] MEDS ORDERED: D5W/LACTATED RINGERS 1,000 ML IV SCH (04:00)
[2021-01-26] MEDS: ceFAZolin/NS 1 GM/50 ML 1 GM/50 ML BAG IV SCH ×2 (06:17→14:06)
[2021-01-26] MEDS ORDERED: KETOROLAC 30 MG/1 ML INJ IV SCH (06:30)
--- NOTE | 2021-01-26 08:35 | Progress Note ---
Assessment and Plan - Patient Problems (1) delivery delivered Onset Date: ~01/25/21 Current Visit: Yes Status: Acute Plan to address problem: Pt in very good spirits. C/O some incisional and uterine pain but states it is well controlled with josias meds. VSS Fundus below umb Lochia small Dressing D&I H&H pending Doing well s/p c/s P: continue pathway advance as tolerated Encouraged OOB once hung is out. All concerns addressed Subjective - Subjective Date of service: 01/26/21 ("So I can start training at 8 weeks?") Principal diagnosis: 8hr s/p primary section Interval history: EDC Confirmation: 02/04/2021 Gestational Age: 38 weeks Past History : 1 Term Births: 0 Premature Births: 0 Living Children: 0 Para: 0 Mult. Births: 0 Prev : 0 Aborta: 0 Elect. Ab: 0 Spont. Ab: 0 Ectopics: 0 Past Medical History: Reviewed history and no changes required: Allergies-seasonal Asthma: Inhaler daily ProAir, Wixela, No intubations Past Surgical History: Reviewed history and no changes required: negative Past Medical History Anesthesia Complications: negative Anemia: negative Autoimmune Disorder: negative Bleeding Disorder: negative Blood Transfusions: negative Breast Disease: negative Diabetes: negative Heart Disease: negative Hypertension: negative Hepatitis/Liver Disease: negative Kidney Disease/UTI: negative Neurologic/Epilepsy/Migraines: negative Phlebitis/Varicosities: negative Psychiatric: negative Pulmonary Disease/Asthma: negative Thyroid Disease: negative Hospitalizations: negative 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 of genital herpes: no Partner hx. of genital herpes: no Rash, Viral, or Febrile illness since last LMP? no Varicella/Chicken Pox Status: Immunized TB Risk: no Genetic History Congenital Heart Defect: Mom: no Dad: no Latrice Disease: Mom: no Dad: no Thalassemia Mom: no Dad: no Neural Tube Defect Mom: no Dad: no Down's Syndrome Mom: no Dad: no Rich-Sachs Mom: no Dad: no Sickle Cell Disease/Trait Mom: no Dad: no Hemophilia Mom: no Dad: no Muscular Dystrophy Mom: no Dad: no Cystic Fibrosis Mom: no Dad: no [place] Chorea Mom: no Dad: no Mental Retardation Mom: no Dad: no Fragile X Mom: no Dad: no Other Genetic/Chromosomal Disorder Mom: no Dad: no Child w/other defect Mom: no Dad: no Enviromental Exposures Enviromental Exposures Reviewed Xray Exposure: no Medication, drug, or alcohol use since LMP: no Chemical/Other Exposure: no Exposure to Cat Liter: no Hx of Parvovirus (Fifth Disease): no Occupational Exposure to Children: none Current Allergies (reviewed today): * DUST (Critical) * POLLEN (Critical) Patient reports: voiding normally (clear yellow urine to BSB), pain well controlled [place]: doing well Objective - Vital Signs Latest vital signs: Vital Signs Temp Pulse Resp BP BP Pulse Ox 01/26/21 06:18 18 01/26/21 05:44 97.5 F L 65 18 118/77 98 01/26/21 03:44 20 01/26/21 02:35 97.6 F 66 16 124/66 100 01/26/21 01:40 69 16 109/62 99 01/26/21 01:20 68 14 115/66 99 01/26/21 01:05 64 16 110/64 99 01/26/21 00:50 72 14 107/54 100 01/26/21 00:45 69 18 109/59 99 01/26/21 00:40 98.0 F 77 16 100/57 99 01/25/21 23:24 64 100 01/25/21 23:21 71 110/74 01/25/21 23:19 63 100 01/25/21 23:14 67 99 01/25/21 23:09 65 99 01/25/21 23:05 65 116/74 01/25/21 23:04 69 100 01/25/21 22:59 79 100 01/25/21 22:54 95 H 100 01/25/21 22:49 94 H 100 01/25/21 22:44 70 84 01/25/21 22:39 62 100 01/25/21 22:37 58 L 113/55 01/25/21 22:34 59 L 100 01/25/21 22:29 68 100 01/25/21 22:24 59 L 100 01/25/21 22:20 54 L 132/61 01/25/21 22:19 63 100 01/25/21 22:17 60 144/67 01/25/21 22:15 74 80 L 01/25/21 22:14 68 100 01/25/21 22:09 60 100 01/25/21 22:07 59 L 113/63 01/25/21 22:04 58 L 100 01/25/21 21:59 57 L 100 01/25/21 21:54 60 100 01/25/21 21:51 59 L 111/57 01/25/21 21:49 60 100 01/25/21 21:44 58 L 100 01/25/21 21:39 63 100 01/25/21 21:35 72 110/58 01/25/21 21:34 69 100 01/25/21 21:29 68 100 01/25/21 21:24 61 100 01/25/21 21:21 74 82 L 01/25/21 21:19 67 114/56 100 01/25/21 21:16 65 108/70 01/25/21 21:14 61 100 01/25/21 21:09 70 100 01/25/21 21:07 78 90 01/25/21 21:04 61 99 01/25/21 20:59 61 100 01/25/21 20:54 67 100 01/25/21 20:49 71 116/73 100 01/25/21 20:44 56 L 118/66 96 01/25/21 20:43 65 94 01/25/21 20:39 73 97 01/25/21 20:37 94 H 93 01/25/21 20:35 68 108/68 01/25/21 20:34 74 100 01/25/21 20:32 70 103/59 01/25/21 20:29 73 100 01/25/21 20:25 69 100/57 01/25/21 20:24 71 100 01/25/21 20:19 79 99 01/25/21 20:17 75 101/56 01/25/21 20:15 76 104/57 01/25/21 20:14 77 98 01/25/21 20:13 72 109/59 01/25/21 20:11 74 112/56 01/25/21 20:09 80 117/58 98 01/25/21 20:07 78 118/57 01/25/21 20:05 80 123/59 01/25/21 20:04 73 100 01/25/21 20:03 74 107/57 01/25/21 20:01 73 104/55 01/25/21 19:59 68 106/55 100 01/25/21 19:57 76 113/54 01/25/21 19:55 62 112/55 01/25/21 19:54 72 100 01/25/21 19:53 68 117/55 01/25/21 19:51 67 116/62 01/25/21 19:49 62 122/65 99 01/25/21 19:47 76 144/72 01/25/21 19:45 71 135/78 01/25/21 19:44 76 122/73 100 01/25/21 19:39 69 99 01/25/21 19:34 78 99 01/25/21 19:29 85 100 01/25/21 19:21 73 99 01/25/21 19:19 98.3 F 71 16 127/71 98 01/25/21 19:16 69 100 01/25/21 19:11 76 98 01/25/21 19:07 71 127/71 01/25/21 19:06 83 95 01/25/21 18:56 63 100 01/25/21 18:51 61 100 01/25/21 18:46 61 100 01/25/21 18:42 59 L 94 01/25/21 18:41 65 98 01/25/21 18:36 73 98 01/25/21 18:31 68 97 01/25/21 18:26 66 98 01/25/21 18:21 65 98 01/25/21 18:16 65 98 01/25/21 18:11 71 98 01/25/21 18:06 69 99 01/25/21 18:01 81 99 01/25/21 17:58 72 119/71 01/25/21 17:56 78 99 01/25/21 17:51 74 99 01/25/21 17:46 68 100 01/25/21 17:41 66 96 01/25/21 17:36 72 100 01/25/21 17:35 63 125/74 01/25/21 17:14 66 99 01/25/21 17:09 74 100 01/25/21 17:04 71 100 01/25/21 16:59 77 99 01/25/21 16:56 63 90 01/25/21 16:54 70 99 01/25/21 16:49 70 100 01/25/21 16:44 76 100 01/25/21 16:39 77 100 01/25/21 16:34 74 100 01/25/21 16:29 68 99 01/25/21 16:24 72 99 01/25/21 16:19 79 100 01/25/21 16:14 78 99 01/25/21 16:09 75 99 01/25/21 16:07 98.4 F 18 01/25/21 16:04 77 100 01/25/21 15:59 71 99 01/25/21 15:58 76 129/69 Intake and Output 01/25/21 01/26/21 01/26/21 22:59 06:59 14:59 Intake Total 879.678 9325 Output Total 1250 Balance 367.383 -30 Intake: IV 946.282 0092 Lactated Ringers 1,000 ml 364.583 @ 125 mls/hr IV DIRECT JOSIAS Rx#:[id number] PITOCin/NS 30 UNIT/500ML 2.8 30 units In 500 ml @ 4 mls/hr IV TITR JOSIAS Rx#: [id number] Intake, Free Water 220 Output: Urine 1250 Indwelling Catheter 650 Other: Total, Output Amount 650 Weight 190 lb 0.016 oz Estimated Blood Loss 632 - Exam Breasts: Present: normal, Cardiovascular: Present: Regular rate Lungs: Present: Clear to auscultation, Normal air movement (encouraged IS hourly) Abdomen: Present: normal appearance, soft Uterus: Present: normal, fundal height below umbilicus Extremities: Present: normal Deep Tendon Reflex Grade: Normal +2 Incision: Present: normal, dry, intact, dressed (to be removed tonight) - Labs Labs: Abnormal lab results 01/25/21 Range/Units 17:05 MCH 27 L (28-32) pg RDW 15.6 H (13.2-15.2) %
--- NOTE | 2021-01-26 10:12 | Post Anesthesia Evaluation ---
- Post Anesthesia Evaluation Patient Participated: Yes Airway Patent: Yes Stable Respiratory Function: Yes Nausea/Vomiting: No Temp > 96.8F: Yes Pain Manageable: Yes Adequeate Hydration: Yes Anesthesia Complications: No Block Receding Appropriately: Yes
[2021-01-26] MEDS: PRENATAL VIT27-FE FUMARATE-FOLIC ACID VIT TAB PO SCH (10:15)
[2021-01-26] MEDS: FERROUS SULFATE 325 MG TAB PO SCH (10:15)
[2021-01-26] MEDS ORDERED: oxyCODONE /ACETAMINOPHEN 5-325MG TAB PO PRN (12:21)
[2021-01-26] MEDS ORDERED: ACETAMINOPHEN 500 MG TAB PO PRN (12:29)
--- NOTE | 2021-01-26 12:35 | Operative Report ---
Operative Report Operative Report: Date of operation: 01/25/2021 Pre-operative diagnosis: 1. 38 weeks gestational age 2. intolerance to labor 3. Group B Streptococcus carrier state affecting 4. BMI 33.7kg/m2 Post-operative diagnosis: 1. 38 weeks gestational age 2. intolerance to labor 3. Group B Streptococcus carrier state affecting 4. BMI 33.7kg/m2 Procedure name(s): Primary low transverse uterine incision Surgeon: Bhavani Garza MD Kineseologist: Nidia Murphy CNM Anesthesia: Epidural QBL: 400 mL Urine output: 400 mL of clear urine out at the end of the procedure Fluids: 1000 mL Findings: Liveborn male infant weight 6 Lbs. 7 oz. Apgars of 7 and 8 at one and 5 minutes. Grossly normal uterus, tubes and ovaries. Indications: intolerance to labor Procedure: Patient was taking to the operating room. Epidural anesthesia was boluses. Patient was then prepped and draped in the usual sterile fashion Timeout was performed. Once an appropriate level of anesthesia was noted, a Pfannenstiel incision was made and extended the fascia which was incised and extended lateral direction. The overlying fascia was sharply dissected away from the underlying rectus muscles in the superior inferior direction. The midline was entered bluntly. Bladder blade was placed. Vesicouterine fold was incised with blunt dissection bladder flap was created. A transverse incision was made in the lower uterine segment and extended superolateral direction with finger fractionation. [] fluid was noted. Infant was delivered from the ROT , cephalic position. Infant grimace and tone noted on the operative field. Mouth and nose bulb suctioned. Cord was doubly clamped and cut was given to the resuscitation team present. Placenta was delivered. Port wine blood noted within the membranes at delivery, suggesting acute placenta abruption. Also calcifications identified at the periphery of the placenta. Placenta sent to pathology. The uterus was exteriorized and cleaned of any further placental tissue and products of conception. Uterine incision was approximated using 0 Vicryl in a running interlocking stitch followed by further suture of 0 Vicryl in imbricating fashion. Bleeding was encountered from large vessels at the lower uterine segment that were ligated with 3-0 vicryl in interrupted stitches. When hemostasis was noted the uterus was allowed back in the pelvic cavity. Pelvis was irrigated with warm normal saline. Once hemostasis was noted the rectus muscles were approximated using 0 Vicryl interrupted simple stitches 3. Once hemostasis was noted the fascia was approximated using 0 Vicryl simple running stitch. The incision was irrigated with warm saline, once hemostasis as noted, the skin was approximated using 4-0 Vicryl on a Gagandeep needle in a subcuticular manner. Counts were correct x3. Patient tolerated the procedure well, she was taken to recovery room in stable condition.
[2021-01-26 13:50] LABS: Hematocrit 30.6 % (30.3-42.9); Hemoglobin 9.8 gm/dl (10.1-14.3)
[2021-01-26] MEDS: SIMETHICONE 80 MG CHEW TAB PO PRN (14:24)
[2021-01-26] MEDS: oxyCODONE /ACETAMINOPHEN 5-325MG TAB PO PRN ×2 (14:26→20:13)
[2021-01-27] MEDS: SIMETHICONE 80 MG CHEW TAB PO PRN ×2 (00:21→16:27)
[2021-01-27] MEDS ORDERED: oxyCODONE /ACETAMINOPHEN 5-325MG TAB PO PRN (00:28)
[2021-01-27] MEDS ORDERED: MEASLES, MUMPS & RUBELLA 12,500 UNIT/0.5 ML VACCINE SUB-Q ONE (00:29)
[2021-01-27] MEDS: IBUPROFEN 800 MG TAB PO PRN ×3 (05:58→18:27)
[2021-01-27] MEDS ORDERED: TETANUS,DIPH,PERTUSS(ACELL) VACCINE 0.5 ML SYRINGE IM ONE (06:00)
[2021-01-27] MEDS: FERROUS SULFATE 325 MG TAB PO SCH (09:02)
[2021-01-27] MEDS: PRENATAL VIT27-FE FUMARATE-FOLIC ACID VIT TAB PO SCH (09:03)
--- NOTE | 2021-01-27 10:18 | Progress Note ---
Assessment and Plan Pt sitting up and without complaints. POC discussed with pt and SO. Discharge recommendations and precautions reviewed. Pt desires circumcision. Continue postop pathway. Ambulation, hydration, and nutrition reviewed and encouraged. All questions and concerns addressed. Pt desires abdominal binder. RN made aware. - Patient Problems (1) delivery delivered Onset Date: ~01/25/21 Current Visit: Yes Status: Acute Subjective - Subjective Date of service: 01/27/21 Principal diagnosis: POD #1, primary section Patient reports: appetite normal, voiding normally, pain well controlled, flatus, ambulating normally, no dizzy ambulation, no nauseated [place]: doing well, nursing well Objective - Vital Signs Latest vital signs: Vital Signs Temp Pulse Resp BP BP Pulse Ox 01/27/21 08:00 98.1 F 70 18 115/63 98 01/27/21 05:58 12 01/27/21 00:04 98.9 F 20 118/73 01/26/21 20:13 12 01/26/21 15:59 98.9 F 78 20 106/60 97 01/26/21 11:42 98.2 F 71 20 104/62 97 Intake and Output 01/26/21 01/27/21 01/27/21 23:59 07:59 15:59 Intake Total 480 Output Total 1150 Balance -670 Intake: Oral 480 Output: Urine 1150 Void 1150 Other: Total, Intake Amount 240 Total, Output Amount 800 # Voids Void 3 1 - Exam Breasts: Present: normal, Cardiovascular: Present: Regular rate Lungs: Present: Normal air movement Abdomen: Present: normal appearance, soft Vulva: both: normal Uterus: Present: normal, firm Extremities: Present: normal Incision: Present: normal, dry, intact Comments: scant vaginal bleeding - Labs Labs: Abnormal lab results 01/26/21 Range/Units 13:13 Hgb 9.8 L (10.1-14.3) gm/dl
[2021-01-27] MEDS: oxyCODONE /ACETAMINOPHEN 5-325MG TAB PO PRN ×2 (10:27→19:53)
[2021-01-28] MEDS: oxyCODONE /ACETAMINOPHEN 5-325MG TAB PO PRN ×2 (05:13→10:21)
[2021-01-28] MEDS: IBUPROFEN 800 MG TAB PO PRN (07:55)
--- NOTE | 2021-01-28 08:35 | Discharge Summary ---
Providers - Providers Date of Admission: 01/25/21 19:21 Date of discharge: 01/28/21 (desires d/c home) Attending physician: EMILY ESPINOZA 01/27/21 08:00 Consult to [facility] [CONS] Routine Reason For Exam: Primary care physician: FLORENTIN QUINTERO Hospitalization Reason for admission: Labor Condition: Good Pertinent studies: postop H&H 9.8/30.6, asymptomatic anemia d/t acute blood loss Procedures: primary c/s Hospital course: uncomplicated c/s and postop course Disposition: DC-01 TO HOME OR SELFCARE Final Discharge Diagnosis (Prints w/discharge instructions): c/s delivery Time spent for discharge: 20 - Discharge Diagnoses (1) delivery delivered Status: Acute Core Measure Documentation - Palliative Care Palliative Care/ Comfort Measures: Not Applicable - Core Measures Any of the following diagnoses?: none Exam - Constitutional Vitals: Temp Pulse Resp BP Pulse Ox 98.0 F 80 18 120/65 97 01/28/21 07:27 01/28/21 07:27 01/28/21 07:27 01/28/21 07:27 01/28/21 07:27 General appearance: Present: no acute distress, well-nourished - EENT Eyes: Present: PERRL ENT: hearing intact, clear oral mucosa - Neck Neck: Present: supple, normal ROM - Respiratory Respiratory effort: normal Respiratory: bilateral: CTA - Cardiovascular Rhythm: regular Heart Sounds: Absent: rub, click - Extremities Extremities: No edema - Abdominal General gastrointestinal: Present: soft, non-tender, non-distended, normal bowel sounds Female genitourinary: Present: normal - Rectal Rectal Exam: deferred - Integumentary Integumentary: Present: clear, warm, dry - Musculoskeletal Musculoskeletal: gait normal, strength equal bilaterally - Psychiatric Psychiatric: appropriate mood/affect, intact judgment & insight - Neurologic Neurologic: CNII-XII intact, moves all extremities - Additional findings Additional findings: incision D&I w/ steristrips, breast feeding, lochia scant, fundus firm Plan Activity: advance as tolerated Diet: regular Wound: open to air, keep clean and dry Follow up with: FLORENTIN QUINTERO MD [Primary Care Provider] - 7 Days (Congratulations! Please call [phone] to schedule your incision check and your son's circumcision in 1 week. Bring EMLA cream to his appointment and await further teaching. Call for any questions or concerns. ) Forms: [facility] Discharge Summary Prescriptions: Lidocain2.5%/Prilocai2.5% [Emla] 5 gm TP ONCE #1 tube Ibuprofen [Motrin 800 MG tab] 800 mg PO TID PRN #30 tablet PRN Reason: Pain oxyCODONE /ACETAMINOPHEN [Percocet 5/325 mg] 1 - 2 tab PO Q6HR PRN #14 tablet PRN Reason: Pain
[2021-01-28] MEDS: FERROUS SULFATE 325 MG TAB PO SCH (09:21)
[2021-01-28] MEDS: PRENATAL VIT27-FE FUMARATE-FOLIC ACID VIT TAB PO SCH (09:21)
[2021-01-28 12:44] VITALS: BP 115/61
== END 2021-01-28 12:45 | disposition home or self-care (01) | DRG 787 ==
LOC: TRG 15:38 → APU 15:39 → LD 17:15 → TRG 18:20 → LD 19:21 → OB 01-26 02:56
PROVIDERS: ADMIT Obstetrics & Gynecology; ATTEND Obstetrics & Gynecology
PROC: 3E0R3BZ Introduction of Anesthetic Agent into Spinal Canal, Percutaneous Approach (ICD-10-PCS; 2021-01-25)
PROC: 00HU33Z Insertion of Infusion Device into Spinal Canal, Percutaneous Approach (ICD-10-PCS; 2021-01-25)
PROC: 10D00Z1 Extraction of Products of Conception, Low, Open Approach (ICD-10-PCS; principal; 2021-01-26)
DX: O99.824 Streptococcus B carrier state complicating childbirth (principal); D62 Acute posthemorrhagic anemia; O75.0 Maternal distress during labor and delivery; Z3A.38 38 weeks gestation of pregnancy; Z37.0 Single live birth; Z20.822 Contact with and (suspected) exposure to COVID-19; O90.81 Anemia of the puerperium
CPT/HCPCS: 36415; 59025; 76816; 76819; 85014; 85018; 85027; 86592; 86850; 86900; 86901; 88307; 99211; G0378; A6250; G0463; J0290; J0595; J0690; J1100; J1170; J1885; J2405; J2590; J2765; J7120; J7121; U0003